=== PATIENT | male | born 1955 | race Caucasian/White ===

== ENCOUNTER 2024-10-30 08:46 | Emergency (ER) | payer MEDICARE, SELFPAY ==
--- NOTE | ~2024-10-30 | XR_ITS ---
XR abdomen/kub 1V Ordering provider: NENA Lambert History: . constipation . Comparison: None. FINDINGS: BOWEL: Nonobstructive bowel gas pattern. Fecal material is loaded in the colon. ORGANOMEGALY: None. SIGNIFICANT PATHOLOGIC CALCIFICATIONS: None. OTHER: No free air is seen under the diaphragm. Bilateral hip osteoarthritic changes. IMPRESSION: NO ACUTE ABDOMINAL FINDINGS. Constipation. Reviewed, dictated and finalized at location A.
--- OUTSIDE RECORDS SUMMARY | 2024-10-30 08:58 | XMS_ITS | Continuity of Care Document ---
Author Organization [facility]. 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 Role Phone Unavailable Unavailable Unavailable Unavailable Unavailable Unavailable Unavailable Unavailable Unavailable Unavailable Unavailable Unavailable Unavailable Unavailable Unavailable Unavailable Unavailable Unavailable Unavailable Unavailable Unavailable Unavailable Unavailable Unavailable Unavailable Unavailable Unavailable Unavailable Unavailable Unavailable Unavailable Unavailable Unavailable Unavailable Unavailable Unavailable Unavailable Unavailable Unavailable Unavailable Problems Near syncope Onset:12-Sep-2022 ANGEL Addison Gastritis Onset:12-Mar-2019 Miguel Platt APRN, Jr History of SARS-CoV-2 Comments:History of COVID-19 Patient encounter status Comments:Screening PSA (prostate specific antigen) Electrocardiogram abnormal Comments:Abnormal EKG Syncope Comments:Syncope, unspecifie d syncope type Starr's esophagus Comments:Starr's esophagus without dysplasia Gastroesophageal reflux disease Comments:Gastroesophageal reflux disease, esophagitis presence not specified Irregular heart beat Comments:Irregular cardiac rhythm Multiple premature ventricul ar complexes Comments:PVCs (premature ventricular contractions) Paroxysmal atrial fibrillati on Comments:PAF (paroxysmal atrial fibrillation) Essential hypertension Comments:Primary hypertensio n Mixed hyperlipidemia Comments:Mixed hyperlipidemi a Pure hypercholesterolemia Comments:Pure hypercholesterolemia Obesity Comments:Obesity without serious comorbidity, unspecified classification, unspecified obesity type Obesity caused by energy imbalance Comments:Other obesity due t o excess calories Viral meningitis Comments:Viral meningitis, unspecified Unspecified atrial fibrillation Gastro-esophageal reflux disease Other hyperlipidemia Essential (primary) hypertension Allergies and Adverse Reactions No Known Allergies(Allergy) Onset: 01-Jan-2024 No Known Allergies(Allergy) Medications Lidocaine Hydrochloride 20 M G/ML Mucous Membrane Topical Solution;2 % Mouth/Throat every 3 hrs, 15 mL as needed Quantity:600 MD [facility] Start:22-May-2024 Comments:2 % Mouth/Throat every 3 hrs, 15 mL as needed {21 (methylPREDNISolone 4 MG Oral Tablet) } Pack;4 MG Orally , as directed Quantity:1 MD Blair Adames Start:22-May-2024 Comments:4 MG Orally , as directed succinylcholine chloride 20 MG/ML Injectable Solution [Quelicin];Provider Administration Instructions:HIGH RISK MEDICATION Quantity:1 Mike Jimenez MD Start:03-Jan-2024 Status:Discontinued Comments:Provider Administration Instructions:HIGH RISK MEDICATION 5 ML lidocaine hydrochloride 20 MG/ML Injection [Xylocaine] Quantity:1 Mike Jimenez MD Start:03-Jan-2024 sodium chloride 9 MG/ML Injectable Solution Quantity:1 Mike Jimenez MD Start:03-Jan-2024 Status:Discontinued 1 ML glycopyrrolate 0.2 MG/M L Injection Quantity:1 Mike Jimenez MD Start:03-Jan-2024 Status:Discontinued 1 ML phenylephrine hydrochlo ride 10 MG/ML Injection;Provider Administration Instructions:HIGH RISK MEDICATION Avoid Extravasation: Vesicant Caution: This medication is a vesicant andshould be diluted and administered slowlythrough a running IV. Quantity:1 Mike Jimenez MD Start:03-Jan-2024 Status:Discontinued Comments:Provider Administration Instructions:HIGH RISK MEDICATION Avoid Extravasation: Vesicant Caution: This medication is a vesicant andshould be diluted and administered slowlythrough a running IV. EPHEDRINE SULFATE_EPHEIA5013 Quantity:1 Mike Jimenez MD Start:03-Jan-2024 Status:Discontinued 20 ML propofol 10 MG/ML Injection;Provider Administration Instructions:HIGH RISK MEDICATION Quantity:1 Mike Jimenez MD Start:03-Jan-2024 Status:Discontinued Comments:Provider Administration Instructions:HIGH RISK MEDICATION magnesium chloride 0.48730 MEQ/ML / potassium chloride 0.90620 MEQ/ML / sodium acetate 0.027 MEQ/ML / sodium chloride 0.0899 MEQ/ML / sodium gluconate 5.02 MG/ML Injectable Solution [Plasmalyte A];[id number] Mike Jimenez MD Start:50-Arp-5704Out:2023 Comments:[id number] acetaminophen 325 MG Oral Tablet;650 MILLIGRAM ONCALL Quantity:2 Mike Jimenez MD Start:39-Xhf-3689Sfk:2023 Comments:[id number] 1000 ML sodium chloride 4.5 MG/ML Injection;[id number] Mike Jimeenz MD Start:50-Drg-9086Wtq:2023 Comments:[id number] celecoxib 200 MG Oral Capsul e [CeleBREX];200 MILLIGRAM ONCALL Quantity:1 Mike Jimenez MD Start:64-Nuu-2909Qvp:2023 Comments:[id number] rosuvastatin calcium 40 MG O ral Tablet [Crestor];40 MILLIGRAM PO DAILY Start:01-Jan-2024 Comments:40 MG PO DAILY aspirin 81 MG Chewable Table t;81 MILLIGRAM PO DAILY Start:01-Jan-2024 Comments:81 MG PO DAILY amiodarone hydrochloride 100 MG Oral Tablet [Pacerone] Start:01-Jan-2024 Status:Discontinued {20 (nirmatrelvir 150 MG Ora l Tablet) / 10 (ritonavir 100 MG Oral Tablet) } Pack [Paxlovid 5-Day];Paxlovid Quantity:30 Start:21-Sep-2023 Comments:Paxlovid losartan potassium;losartan potassium Quantity:90 Start:03-Aug-2023 Comments:losartan potassium omeprazole;omeprazole Quantity:180 Start:03-Aug-2023 Comments:omeprazole rosuvastatin calcium;rosuvastatin calcium Quantity:90 Start:05-Jul-2023 Comments:rosuvastatin calcium aspirin;aspirin Quantity:90 Start:22-Nov-2022 Comments:aspirin acetaminophen 325 MG / HYDROcodone bitartrate 5 MG Oral Tablet;Provider Administration Instructions:DO NOT GIVE MORE THAN 3000MG TOTAL ACETAMINOPHENIN 24 HOUR PERIODOR MAX OF 9 TABLETS PER DAYIf an IV/IM and a PO pain medication are ordered forthe same pain level, the PO medication will beadministered preferentially if the patient is ableto take PO. Quantity:1 May Mercado MD Start:14-Jun-2020 Status:Discontinued Comments:Provider Administration Instructions:DO NOT GIVE MORE THAN 3000MG TOTAL ACETAMINOPHENIN 24 HOUR PERIODOR MAX OF 9 TABLETS PER DAYIf an IV/IM and a PO pain medication are ordered forthe same pain level, the PO medication will beadministered preferentially if the patient is ableto take PO. 100 ML propofol 10 MG/ML Injection;Provider Administration Instructions:Utilize Narcotic Tubing obtained from MedicationRoom during Administration. High Risk Medication Reassess patient for continued need for Paralytic orSedative therapy. Quantity:1 Truman Peralta MD Start:14-Jun-2020 Status:Discontinued Comments:Provider Administration Instructions:Utilize Narcotic Tubing obtained from MedicationRoom during Administration. High Risk Medication Reassess patient for continued need for Paralytic orSedative therapy. 100 ML propofol 10 MG/ML Injection;Provider Administration Instructions:Utilize Narcotic Tubing obtained from MedicationRoom during Administration. High Risk Medication Reassess patient for continued need for Paralytic orSedative therapy. Quantity:1 Truman Peralta MD Start:14-Jun-2020 Status:Discontinued Comments:Provider Administration Instructions:Utilize Narcotic Tubing obtained from MedicationRoom during Administration. High Risk Medication Reassess patient for continued need for Paralytic orSedative therapy. dexAMETHasone phosphate 4 MG /ML Injectable Solution;Provider Administration Instructions:5mL Multi-Dose vialDate and initial vial when opening Quantity:1 Truman Peralta MD Start:14-Jun-2020 Status:Discontinued Comments:Provider Administration Instructions:5mL Multi-Dose vialDate and initial vial when opening 1 ML glycopyrrolate 0.2 MG/M L Injection Quantity:1 Truman Peralta MD Start:14-Jun-2020 Status:Discontinued 2 ML ondansetron 2 MG/ML Injection;Provider Administration Instructions:Administer as a slow IV push over 2 minutesIf an IV/IM and a PO/SL/PerTube medication areordered for the same prn indication, the PO/SL/PerTube medication will be administered preferentiallyif the patient is able to tolerate a PO/SL/PerTubemedication. Quantity:1 Truman Peralta MD Start:14-Jun-2020 Status:Discontinued Comments:Provider Administration Instructions:Administer as a slow IV push over 2 minutesIf an IV/IM and a PO/SL/PerTube medication areordered for the same prn indication, the PO/SL/PerTube medication will be administered preferentiallyif the patient is able to tolerate a PO/SL/PerTubemedication. ketamine 10 MG/ML Injectable Solution;Provider Administration Instructions:Ketamine is to be administered by a licensedindependent practitioner only. NOT to be administeredIV PUSH by a NURSE.Direct IV Injection: Administer over 60 seconds Quantity:1 Truman Peralta MD Start:14-Jun-2020 Status:Discontinued Comments:Provider Administration Instructions:Ketamine is to be administered by a licensedindependent practitioner only. NOT to be administeredIV PUSH by a NURSE.Direct IV Injection: Administer over 60 seconds 50 ML propofol 10 MG/ML Injection;Provider Administration Instructions:Utilize Narcotic Tubing obtained from MedicationRoom during Administration. High Risk Medication Reassess patient for continued need for Paralytic orSedative therapy. Quantity:1 Truman Peralta MD Start:14-Jun-2020 Status:Discontinued Comments:Provider Administration Instructions:Utilize Narcotic Tubing obtained from MedicationRoom during Administration. High Risk Medication Reassess patient for continued need for Paralytic orSedative therapy. 50 ML propofol 10 MG/ML Injection;Provider Administration Instructions:Utilize Narcotic Tubing obtained from MedicationRoom during Administration. High Risk Medication Reassess patient for continued need for Paralytic orSedative therapy. Quantity:1 Truman Peralta MD Start:14-Jun-2020 Status:Discontinued Comments:Provider Administration Instructions:Utilize Narcotic Tubing obtained from MedicationRoom during Administration. High Risk Medication Reassess patient for continued need for Paralytic orSedative therapy. 2 ML fentaNYL 0.05 MG/ML Injection;Provider Administration Instructions:HIGH RISK MEDICATIONIf an IV/IM and a PO pain medication are ordered forthe same pain level, the PO medication will beadministered preferentially if the patient is ableto take PO. Quantity:1 Truman Peralta MD Start:14-Jun-2020 Status:Discontinued Comments:Provider Administration Instructions:HIGH RISK MEDICATIONIf an IV/IM and a PO pain medication are ordered forthe same pain level, the PO medication will beadministered preferentially if the patient is ableto take PO. 20 ML propofol 10 MG/ML Injection;Provider Administration Instructions:HIGH RISK MEDICATION Quantity:1 Truman Peralta MD Start:14-Jun-2020 Status:Discontinued Comments:Provider Administration Instructions:HIGH RISK MEDICATION neostigmine methylsulfate 1 MG/ML Injectable Solution Quantity:1 Truman Peralta MD Start:14-Jun-2020 Status:Discontinued 1 ML glycopyrrolate 0.2 MG/M L Injection Quantity:1 Truman Peralta MD Start:14-Jun-2020 Status:Discontinued rocuronium bromide 10 MG/ML Injectable Solution;Provider Administration Instructions:HIGH RISK MEDICATION Avoid Extravasation: Vesicant Quantity:1 Truman Peralta MD Start:14-Jun-2020 Status:Discontinued Comments:Provider Administration Instructions:HIGH RISK MEDICATION Avoid Extravasation: Vesicant 5 ML lidocaine hydrochloride 20 MG/ML Injection [Xylocaine];Provider Administration Instructions:5ml Single-Dose VialHIGH RISK MEDICATION Quantity:1 Truman Peralta MD Start:14-Jun-2020 Status:Discontinued Comments:Provider Administration Instructions:5ml Single-Dose VialHIGH RISK MEDICATION midazolam 1 MG/ML Injectable Solution;Provider Administration Instructions:HIGH RISK MEDICATION Quantity:1 Truman Peralta MD Start:14-Jun-2020 Status:Discontinued Comments:Provider Administration Instructions:HIGH RISK MEDICATION gabapentin 300 MG Oral Capsu le [Neurontin] Quantity:1 Truman Peralta MD Start:14-Jun-2020 Status:Discontinued EPINEPHrine 0.005 MG/ML / lidocaine hydrochloride 5 MG/ML Injectable Solution [Xylocaine with EPINEPHrine];Provider Administration Instructions:LIDOCAINE 0.5%/EPI 1:200270 50ML VIALHIGH RISK MEDICATION Quantity:1 Truman Peralta MD Start:14-Jun-2020 Status:Discontinued Comments:Provider Administration Instructions:LIDOCAINE 0.5%/EPI 1:026840 50ML VIALHIGH RISK MEDICATION 30 ML BUPivacaine hydrochlor kyrie 5 MG/ML Injection;Provider Administration Instructions:30 ml Single-dose Vial Quantity:1 Truman Peralta MD Start:14-Jun-2020 Status:Discontinued Comments:Provider Administration Instructions:30 ml Single-dose Vial ceFAZolin 1000 MG Injection Quantity:1 Truman Peralta MD Start:14-Jun-2020 Status:Discontinued acetaminophen 500 MG Oral Tablet;Provider Administration Instructions:CONTAINS 500MG ACETAMINOPHEN PER TABLETNOTIFY PHYSICIAN IF PT REQUIRES MORE THAN 6 TABS/24HRDO NOT EXCEED 3000MG/24 HRS TOTAL ACETAMINOPHEN.If an IV/IM and a PO pain medication are ordered forthe same pain level, the PO medication will beadministered preferentially if the patient is ableto take PO. Quantity:1 Truman Peralta MD Start:14-Jun-2020 Status:Discontinued Comments:Provider Administration Instructions:CONTAINS 500MG ACETAMINOPHEN PER TABLETNOTIFY PHYSICIAN IF PT REQUIRES MORE THAN 6 TABS/24HRDO NOT EXCEED 3000MG/24 HRS TOTAL ACETAMINOPHEN.If an IV/IM and a PO pain medication are ordered forthe same pain level, the PO medication will beadministered preferentially if the patient is ableto take PO. water 1000 MG/ML Injectable Solution Quantity:1 Truman Peralta MD Start:14-Jun-2020 Status:Discontinued MULTIVITAMIN;1 TABLET PO FARA LY Start:14-Jun-2020 Comments:1 TAB PO DAILY acetaminophen 325 MG / HYDROcodone bitartrate 5 MG Oral Tablet;1 TABLET PO Q4H PRN Start:14-Jun-2020 Status:Discontinued Comments:1 TAB PO Q4H PRN As Needed for Acute Pain (3 Day) Dicyclomine Hydrochloride 10 MG Oral Capsule;10 MG Orally Q8H for colon spasms, 1 cap(s) Quantity:30 MD Blair Adames Start:12-Mar-2019 Comments:10 MG Orally Q8H for colon spasms, 1 cap(s) losartan potassium 100 MG Or al Tablet;100 MILLIGRAM PO AC DIN Start:12-Mar-2019 Comments:100 MG PO AC DIN omeprazole 40 MG Delayed Rel ease Oral Capsule;40 MILLIGRAM PO AC DIN Start:12-Mar-2019 Comments:40 MG PO AC DIN simvastatin 40 MG Oral Table t;40 MILLIGRAM PO AC DIN Start:12-Mar-2019 Status:Discontinued Comments:40 MG PO AC DIN Mucinex MD Blair Adames Stool Softener MD Blair Adames Calcium MD Blair Adames Lidocaine MD Blair Adames Aspirin Low Dose;81 MG , KRISTI E 1 TABLET BY MOUTH EVERY DAY Quantity:90 MD Blair Adames Comments:81 MG , TAKE 1 TABL ET BY MOUTH EVERY DAY Aspirin 81;81 MG Orally Once a day, 1 tablet Quantity:90 MD Blair Adames Comments:81 MG Orally Once a day, 1 tablet CoQ-10;200 MG Orally , as directed MD Blair Adames Comments:200 MG Orally , as directed Losartan Potassium 100 MG Or al Tablet;100 MG , TAKE 1 TABLET BY MOUTH EVERY DAY Quantity:90 MD Blair Adames Comments:100 MG , TAKE 1 TAB LET BY MOUTH EVERY DAY Zocor;40 MG , TAKE 1 TABLET BY MOUTH EVERY EVENING MD Blair Adames Status:Inactive Comments:40 MG , TAKE 1 TABLET BY MOUTH EVERY EVENING Rosuvastatin Calcium;40 MG , TAKE 1 TABLET BY MOUTH EVERY DAY Quantity:90 MD Blair Adames Comments:40 MG , TAKE 1 TABL ET BY MOUTH EVERY DAY Omeprazole;40 MG , TAKE ONE CAPSULE BY MOUTH TWICE DAILY. STARTING 30 MINUTES BEFORE BREAKFAST Quantity:180 MD Blair Adames Comments:40 MG , TAKE ONE CAPSULE BY MOUTH TWICE DAILY. STARTING 30 MINUTES BEFORE BREAKFAST Procedures EGD BIOPSY SINGLE/MULTIPLE Date: 024 Immunizations zFLU 4V (AFLURIA QUAD), 3+yr s, WITH PRES - ALL PAYORS Lot #:[id number], [employer] zFLU 4V (FLUCELVAX QUAD), 2y rs+, NO PRES - ALL PAYORS Lot #:[id number], [employer] zCOVID-19 (Moderna Booster) 18+yrs, NO PRES Lot #:[id number], [employer] zCOVID-19 (Moderna Booster) 18+yrs, NO PRES Lot #:[id number], [employer] zFLU 4V (FLUAD QUAD), 65yrs+ , NO PRES - ALL PAYORS Lot #:[id number], [employer] zCOVID-19 (Pfizer-BioNTech P urple Cap Comirnaty) 12+yrs, NO PRES Lot #:[id number], [employer] zFLU 4V (FLUZONE HIGH DOSE Q UAD), 65yrs+, NO PRES - ALL PAYORS Lot #:[id number], San[employer]i Pasteur zCOVID-19 (Comirnaty ) 12+yrs, NO PRES Lot #:[id number], [employer] zFLU 4V (FLUAD QUAD), 65yrs+ , NO PRES - ALL PAYORS Lot #:[id number], [employer] FLU 3V (FLUZONE HIGH DOSE TR I), 65yrs+, NO PRES - ALL PAYORS Lot #:[id number], [employer]i Pasteur zCOVID-19 (Comirnaty ) 12+yrs, NO PRES Lot #:[id number], Pfizer, Inc Social History Smoking Status Never smoked tobacco Recorded: 12-Sep-2022 Never smoked tobacco Recorded: 12-Mar-2019 Never smoked tobacco Never smoked tobacco Results LIPID PANEL, STANDARD (Q-7600) Ordered On:04-Jan-2024 Comments:0; 0; 0; 0PERFORMIN G LAB: [facility] [employer]-[id number] Pee Doherty, [id number] Manny Hamilton MDX0A Cholesterol [Mass/Vol]149mg/dL(Normal ) Range:0-200mg/dL Cholesterol in HDL [Mass/Vol]43mg/dL(Normal) Range:> OR = 40 mg/dL Cholesterol non HDL [Mass/Vol]106mg/dL(Normal ) Range:0-130mg/dL Comments:For patients with diabetes plus 1 major ASCVD riskfactor, treating to a non-HDL-C goal of <100 mg/dL(LDL-C of <70 mg/dL) is considered a therapeuticoption. Triglyceride [Mass/Vol]156mg/dL(High) Range:0-150mg/dL Cholesterol.total/Ch olest param in HDL [Mass ratio]3.5{(calc)}(Normal) Range:0-5{(calc)} Cholesterol in LDL C alc [Mass/Vol]81mg/dL(Normal) Comments:Reference range: <100Desirable range <100 mg/dL for primary prevention;<70 mg/dL for patients with CHD or diabetic patientswith > or = 2 CHD risk factors.LDL-C is now calculated using the Jerecalculation, which is a validated novel method providingbetter accuracy than the Friedewald equation in theestimation of LDL-C.Ganesh BOJORQUEZ et al. LENIN. 2013;310(19): 1074-1466(http://education.[employer]/faq/VDF859) PSA, TOTAL (Q-5363) Ordered On:04-Jan-2024 Comme nts:0; 0; 0; 0PERFORMING LAB: [facility] [employer] [facility]-[id number] E Pernell Doherty, [id number] [employer] MDX0A Prostate specific Ag [Mass/Vol]0.99ng/mL(Mary l) Range:< OR = 4.00 ng/mL Comments:The total PSA value from this assay system isstandardized against the WHO standard. The testresult will be approximately 20% lower when comparedto the equimolar-standardized total PSA (BeckmanCoulter). Comparison of serial PSA results should beinterpreted with this fact in mind.This test was performed using the Siemenschemiluminescent method. Values obtained fromdifferent assay methods cannot be usedinterchangeably. PSA levels, regardless ofvalue, should not be interpreted as absoluteevidence of the presence or absence of disease. HEMOGLOBIN A1c (Q-496) Ordered On:04-Jan-2024 Co mments:0; 0; 0; 0PERFORMING LAB: [facility] [employer] [facility]-[id number] E Pernell Reyespee, [id number] Manny [employer] MDX0A HbA1c (Bld) [Mass fraction]5.9%{total}(High ) Range:0-5.7%{total} Comments:For someone without known diabetes, a uosrqxqzksX7f value between 5.7% and 6.4% is consistent withprediabetes and should be confirmed with afollow-up test.For someone with known diabetes, a value <7%indicates that their diabetes is well controlled. Y6cxwwohfz should be individualized based on duration ofdiabetes, age, comorbid conditions, and otherconsiderations.This assay result is consistent with an increased riskof diabetes.Currently, no consensus exists regarding use ofhemoglobin A1c for diagnosis of diabetes for children.This test was performed on the CloudBase[employer] naa c503 platform.Effective 02/19/23, a change in test platforms from theCloudCase to the Braydon naa c503 may have [id number] results compared to historical results.Based [facility], the [employer] platform relative to the Abbottplatform had an average increase in HbA1c value of< or = 0.3%. This difference is within acceptedvariability established by the National GlycohemoglobinStandardization Program. Note that not all individualswill have had a shift in their results and directcomparisons between historical and current results fortesting conducted on different platforms is notrecommended. Comprehensive Metabolic Panel([id number]) Ordered On:04-Jan-2024 Comments:0; 0; 0; 0PERFORMIN G LAB: TP, [facility]-[id number] E Pernell Doherty, [id number] Calhoun H Joy MDX0A AST [Catalytic activity/Vol]18U/L(Normal ) Range:10U/L-35U/L CO2 [Moles/Vol]27mmol/L(Mary l) Range:20mmol/L-32mmol/L Albumin/Globulin [Ma ss ratio]1.9{(calc)}(Normal) Range:1{(calc)}-2.5{(calc)} Sodium [Moles/Vol]140mmol/L(Norm al) Range:135mmol/L-146mmol/L Urea nitrogen [Mass/Vol]16mg/dL(Normal) Range:7mg/dL-25mg/dL Bilirubin [Mass/Vol]0.6mg/dL(Normal ) Range:0.2mg/dL-1.2mg/dL Albumin [Mass/Vol]4.4g/dL(Normal) Range:3.6g/dL-5.1g/dL ALP [Catalytic activity/Vol]57U/L(Normal ) Range:35U/L-144U/L Glucose [Mass/Vol]84mg/dL(Normal) Range:65mg/dL-99mg/dL Comments:Fasting reference interval Creatinine [Mass/Vol]1.03mg/dL(Mary l) Range:0.7mg/dL-1.35mg/dL ALT [Catalytic activity/Vol]20U/L(Normal ) Range:9U/L-46U/L Chloride [Moles/Vol]106mmol/L(Norm al) Range:98mmol/L-110mmol/L Calcium [Mass/Vol]9.1mg/dL(Normal ) Range:8.6mg/dL-10.3mg/dL Globulin Calc (S) [Mass/Vol]2.3g/dL(Normal) Range:1.9g/dL-3.7g/dL Protein [Mass/Vol]6.7g/dL(Normal) Range:6.1g/dL-8.1g/dL Potassium [Moles/Vol]4.1mmol/L(Norm al) Range:3.5mmol/L-5.3mmol/L GFR/1.73 sq M.predic dora Creatinine-based formula (CKD-EPI 2020) (S/P/Bld) [Vol rate/Area]79mL/min/{1.73_ m2}(Normal) Range:> OR = 60 mL/min/1.73m2 Urea nitrogen/Creati nine [Mass ratio]SEE NOTE:{(calc)} Range:6{(calc)}-22{(calc)} Comments:Not Reported: BUN and Creatinine are within reference range. Vital Signs 28-Aug-2024 10:15 BMI30.53{index_val} BP Xsthztlx365de[Hg] BP Sryrkvakq81aq[Hg] BP Zsszsgiq398dv[Hg] BP Hckvvfkao91fh[Hg] Pulse73/min Tzvqfz91nw Pkmwgb262.96cm Epmtxi289.8lb Rfdnrx023.86kg 22-May-2024 13:30 BMI30.12{index_val} BP Uvfblwng266qn[Hg] BP Qlhlvrzdb09ky[Hg] Kxauisenhns35m Pulse81/min Respiratory Rate18/min O2 SAT98 Reguwr14yg Whppsy156.96cm Hmdpup283.6lb Amzfws767.41kg 04-Mar-2024 09:30 BMI30.81{index_val} BP Ehcezcam887jz[Hg] BP Mqmnjmfsm65mc[Hg] Xnnltelwxib38q Pulse82/min Respiratory Rate18/min O2 SAT98 Ppliod80qh Khtimz041.96cm Oldzeo874rv Xjmhdo147.86kg 27-Feb-2024 10:15 BMI30.9{index_val} BP Jxklcxlx951br[Hg] BP Tdxgfzjcr97hf[Hg] Pulse80/min Jtweey01oj Sqjjwi565.96cm Hjvjjo124.7lb Qcjzwi333.18kg 03-Jan-2024 07:26 Height6.25[ft_us] Comments:6 Dtusol207.3kg Comments:111.300 01-Jan-2024 16:26 Height6.25[ft_us] Comments:6 Jkulaw290.636kg Comments:113.636 Encounters Ambulatory Encounter Diagnosis:Paroxysmal atrial fibrillation,Obesity,Essential hypertension,Syncope,Electrocardiogram abnormal,Pure hypercholesterolemia,Multiple premature ventricular complexes,Viral meningitis 28-Aug-2024 10:61Az20-Kvk-1632 10:15 [id number] Comments:Paroxysmal atrial fibrillation,Obesity without serious comorbidity, unspecified classification, unspecified obesity type,Primary hypertension,Syncope, unspecified syncope type,Abnormal EKG,Pure hypercholesterolemia,PV Cs (premature ventricular contractions),Viral meningitis, unspecified Ambulatory Encounter Diagnosis:I10,Encounter for screening for other disorder,Mixed hyperlipidemia,Gastro-esophageal reflux,Starr's esophagus,Irregular heart beat,Obesity caused by energy imbalance,Paroxysmal atrial fibrillation,Multiple premature ventricular complexes,Prediabetes,Patient encounter status,Does use hearing aid,Other residential (current) drug therapy 22-May-2024 13:85Dg5-Vtf-8278 13:30 KARI ALLEN (Attending) [id number] Comments:Primary hypertension,Encounter for screening for other disorder,Mixed hyperlipidemia,Gastroes ophageal reflux disease, esophagitis presence not specified,Starr's esophagus without dysplasia,Irregular cardiac rhythm,Other obesity due to excess calories,PAF (paroxysmal atrial fibrillation),PVCs (premature ventricular contractions),Prediabet es,Prostate cancer screening,Wears hearing aid,Medication management Ambulatory Encounter Diagnosis:I10,Gastro-esophageal reflux,Mixed hyperlipidemia,Starr's esophagus,Irregular heart beat,Obesity caused by energy imbalance,Paroxysmal atrial fibrillation,Multiple premature ventricular complexes,Prediabetes,Patient encounter status,Does use hearing aid,Other exterminator (current) drug therapy 04-Mar-2024 09:[id number] 09:30 JEFFREY RUTLEDGE (Attending) [id number] Comments:Primary hypertension,Gastroesop hageal reflux disease, esophagitis presence not specified,Mixed hyperlipidemia,Starr' s esophagus without dysplasia,Irregular cardiac rhythm,Other obesity due to excess calories,PAF (paroxysmal atrial fibrillation),PVCs (premature ventricular contractions),Prediabet es,Prostate cancer screening,Wears hearing aid,Medication management Ambulatory Encounter Diagnosis:Paroxysmal atrial fibrillation,Obesity,Essential hypertension,Syncope,Electrocardiogram abnormal,Pure hypercholesterolemia,Multiple premature ventricular complexes,Viral meningitis 27-Feb-2024 10:[id number] 10:15 [id number] Comments:Paroxysmal atrial fibrillation,Obesity without serious comorbidity, unspecified classification, unspecified obesity type,Primary hypertension,Syncope, unspecified syncope type,Abnormal EKG,Pure hypercholesterolemia,PV Cs (premature ventricular contractions),Viral meningitis, unspecified short stay Encounter Reason:TAO ESOPHAGUS Encounter Diagnosis:GASTRO-ESOPHAGEAL REFLUX DISEASE WITHOUT ESOPHAGITIS,POLYP OF STOMACH AND DUODENUM,DIAPHRAGMATIC HERNIA WITHOUT OBSTRUCTION OR GANGRENE,ESSENTIAL (PRIMARY) HYPERTENSION,HYPERLIPIDEMIA, UNSPECIFIED,OBESITY, UNSPECIFIED,FAMILY HISTORY OF MALIGNANT NEOPLASM OF DIGESTIVE ORGANS,HOST COORDINATOR (CURRENT) USE OF ASPIRIN,BODY MASS INDEX [BMI] 31.0-31.9, ADULT,STARR'S ESOPHAGUS WITHOUT DYSPLASIA 03-Jan-2024 06:[id number] 06:37 Norma Chapa MD (Attending) [facility] Discharge Disposition:Discharged to home or self care (routine discharge) Norma Chapa MD-03-Jan-2024 [place], [place] [address]Patient Name: JUDY BUCK : 55 RM#: Date: 01/03/24 AGE: 68Disch Date: SEX: MAttending Physician: Eduard Green MD OPERATIVE REPORT DATE OF PROCEDURE: 01/03/2024OPERATING PHYSICIAN: MELISSA PatelWEST CALCAS[facility]ITAL[facility] CARE PHYSICIAN: MELISSA TiptonROCEDURE:Esophagogastroduodenoscopy with biopsy.PREOPERATIVE DIAGNOSIS:The patient has chronic GERD and Starr's for surveillance.POSTOPERATIVE DIAGNOSES:1. Hiatal hernia.2. Fundic polyps, known previously.3. Evidence of Starr's at 37-35 cm, biopsied.DESCRIPTION OF PROCEDURE:After previously explaining the procedure to the patient, explaining the risksand benefits, including but not limited to bleeding, perforation, anyanesthetic risk, brought to endoscopy suite. He was given MAC-assistedanesthesia, tolerated well. Subsequently, Olympus HQ190 gastroscope wasintroduced into the hypopharynx. The esophageal body was intubated. Theesophageal body and then stomach and descending duodenum. Withdrawn J flexview revealed a hiatal hernia and fundic polyps. Those were not biopsiedtoday. There were known from previous examinations. Esophagus was seen. Areawas biopsied at 37-35 cm for Starr's and the endoscope was withdrawn.ASSESSMENT:Gastroesophageal reflux disease and Starr's.PLAN:Follow up office visit for ongoing surveillance pending biopsies. DEEDEE Patel/LianDD: 01/03/2024 08:08DT: 01/03/2024 08:29Job #: [id number] by Eduard Green MD On 01/03/2024 11:56:35 AMPATIENT NAME: JUDY BUCK #[id number] at 1156PATIENT NAME: JUDY BUCK Ambulatory 21-Sep-2023 VERNELL RENDON (Attending) [place] Plan of Treatment Future Tests Future scheduled test information is unavailable Pending Tests Pending diagnostic test information is unavailable Future Visits Future appointment information is unavailable Referrals to Other Providers Reason for Referral Referral Start Date Provider Provider Contact Information Provider Address Eduardo Mckenna MD Work Phone: [phone] [phone] Molly Love MD Work Phone: [phone] [phone] Future Procedures Future procedure information is unavailable Future Medications Future medication information is unavailable Patient Instructions Instruction Admit Date ED Fainting, Vagal Reaction September 12 5:41pm ED Fainting, Uncertain Cause September 12 023 5:41pm Goals Acute Goals Standards of Practice will b e met
--- OUTSIDE RECORDS SUMMARY | 2024-10-30 08:58 | XMS_ITS ---
Author Organization [facility] Silvia samayoa Billing Info Address [address] [place] [id number] Care Team Providers Care Claims Agent Right Of Way Name Role Phone KARI ALLEN Primary Care Provider MD KARI ALLEN Unavailable Unavailable KIMBER LOW [phone] REASON FOR VISIT 6mon Medications Medication SIG (Take, Route, Frequency, Duration) Notes Start Date End Date Status Stool Softener Activ e Aspirin Low Dose 81 MG TAKE 1 TABLET BY MOUTH EVERY DAY for 90 Not-Taking Dicyclomine HCl 10 MG 1 cap(s) Orally Q8 H for colon spasms for 10 day(s) 03/12/2019 Not-Taking Omeprazole 40 MG TAKE ONE CAPSULE BY MOUTH TWICE DAILY. STARTING 30 MINUTES BEFORE BREAKFAST for 90 Active Rosuvastatin Calcium 40 MG TAKE 1 TABLET BY MOUTH EVERY DAY for 90 days Active Lidocaine Active Lidocaine Viscous HCl 2 % 15 mL as neede d Mouth/Throat every 3 hrs for 5 days 05/22/2024 Active Losartan Potassium 100 MG TAKE 1 TABLET BY MOUTH EVERY DAY for 90 days Active MethylPREDNISolone 4 MG as directed Oral ly for 6 days 05/22/2024 Active Mucinex Active Aspirin 81 81 MG 1 tablet Orally Once a day for 90 days Active Calcium Active CoQ-10 200 MG as directed Orally Active Social History Tobacco Use: Social History Observation Description Date Details (start date - stop date) Never Smoker NA - NA Tobacco Status: Question Answer Notes Patient is a never smoker Vital Signs Height 74 in 08/28/2024 Weight 237.8 lbs 08/28/2024 BMI 30.53 kg/m2 08/28/2024 Blood pressure systolic 153 mm Hg 08/29/19 25 Blood pressure diastolic 99 mm Hg 025 Heart Rate 73 /min 08/28/2024 Encounters Encounter Location Date Provider Diagnosis [id number] [address] [place] [address] 08/28/2024 KIMBER LOW Obesity without serious comorbidity, unspecified classification, unspecified obesity type E66.9 ; Paroxysmal atrial fibrillation I48.0 ; Primary hypertension I10 ; Syncope, unspecified syncope type R55 ; Abnormal EKG R94.31 ; Pure hypercholesterolemia E78.00 ; PVCs (premature ventricular contractions) I49.3 and Viral meningitis, unspecified A87.9 Assessments Encounter Date Diagnosis (ICD Code) Assessment Notes Treatment Notes Treatment Clinical Notes Section Notes 08/28/2024 Obesity without seri ous comorbidity, unspecified classification, unspecified obesity type (ICD-10 - E66.9) 08/28/2024 Paroxysmal atrial fibrillation (ICD-10 - I48.0) 41 sec afib non-sustained > 10% PACs see report by EP Dr. Reyez no intervention needed works heavy retired construction 08/28/2024 Primary hypertension (ICD-10 - I10) better controlled with LOSARTAN 08/28/2024 Syncope, unspecified syncope type (ICD-10 - R55) seen [facility] report[facility] negative troponin low risk carotid duplex stable echo and ABNORMAL holter CAC < 100 asymptomatic on asa and statin seen [facility] Reyez 08/28/2024 Abnormal EKG (ICD-10 - R94.31) old inferior FL vs artifact frequent PVCs 08/28/2024 Pure hypercholesterolemia (ICD-10 - E78.00) on statin LDL 81 08/28/2024 PVCs (premature ventricular contractions) (ICD-10 - I49.3) see echo and holter stable 08/28/2024 Viral meningitis, unspecified (ICD-10 - A87.9) remote 08/28/2024 Other 1st degree AV block noted QRS 100msec repeat holter if symptomatic Plan Of Treatment Medication Medication Name Sig Start Date Stop Date Notes Aspirin 81 81 MG 1 tablet Orally Once a day for 90 days Treatment Notes Assessment Notes Paroxysmal atrial fibrillation 41 sec afib non-sustained > 10% PACs see report by EP Dr. Reyez no intervention needed works heavy retired construction Primary hypertension better controlled w ith LOSARTAN Syncope, unspecified syncope type seen [facility] negative troponin low risk carotid duplex stable echo and ABNORMAL holter CAC < 100 asymptomatic on asa and statin seen EP Dr. Reyez Abnormal EKG old inferior FL vs a rtifact frequent PVCs Pure hypercholesterolemia on statin LDL 81 PVCs (premature ventricular contractions ) see echo and holter stable Viral meningitis, unspecified remote Other 1st degree AV block noted QRS 100msec repeat holter if symptomatic Next Appt Details Follow Up: 6 Months, Reason: Progress Notes * Mendez MURGUIA KDOB:[birth year] (69 yo M)Acc No.[id number]:08/28/2024 PROGRESS NOTE Patient: Mendez HURD Provider: Frances LOW MD :1955 A ge:69 Y S ex:Male Date:08/28/2024 C #:[id number] Address:[address] [place] [address], [address], [facility] Pcp:KARI ALLEN Subjective: * Chief Complaints: * 6 mon * HPI: F irst Point of Contact Screening: Do any of the following apply to you? N ew rash or open sores N o F ever and/or chills in the past 7 days N o C ough N o M uscle or body aches (other than from an injury) N o S ore throat N o I n the past 3 weeks, have you or a close contact traveled outside the [facility] and you are now ill? N o P atient History: high BP with MD at home SBP 125-135 able to mow all lawns, does heavy duty asymptomatic. * ROS: C ARDIOLOGY: Constitutional: N egative for:, fatigue. C ardiovascular: N egative for:, chest pain, edema, lightheadedness, orthopnea, presyncope, palpitations, shortness of breath, syncope. R espiratory: N egative for:, dyspnea. M usculoskeletal: N egative for:, edema, leg cramps when walking, muscle aches at rest. N eurological: N egative for:, confusion, dizziness. H ematologic/Lymphatic: N egative for:, easy bruising, bleeding. * Medical History: * Surgical History: v asectomy 1982Ventral Hernia Repair 06/14/2020 * Hospitalization/Major Diagno stic Procedure: E r Visit- Gastritis 04/03 * Family History: M other: . F ather: . S ister(s): . B newer(s): alive.?1 son(s) , 1 daughter(s) - healthy. . * Social History: A lcohol Use Patient u ses alcohol Drinks per occasion: 1 Drinks per week: 4 T obacco Status Patient is a never smoker M arital Status: . L stevenson with: spouse. L iving Environment Reported as: H ouse/Condo/Apartment A mbulatory Status : i s independent C hildren: yes. O ccupation/Work: retired. * Medications: T akingAspirin 81 81 MG Tablet Delayed Release 1 tablet Orally Once a day Calcium CoQ-10 200 MG Capsule as directed Orally Lidocaine Lidocaine Viscous HCl 2 % Solution 15 mL as needed Mouth/Throat every 3 hrs Losartan Potassium 100 MG Tablet TAKE 1 TABLET BY MOUTH EVERY DAY MethylPREDNISolone 4 MG Tablet Therapy Pack as directed Orally Mucinex Omeprazole 40 MG Capsule Delayed Release TAKE ONE CAPSULE BY MOUTH TWICE DAILY. STARTING 30 MINUTES BEFORE BREAKFAST Rosuvastatin Calcium 40 MG Tablet TAKE 1 TABLET BY MOUTH EVERY DAY Stool Softener Taking Aspirin 81 81 MG Tablet Delayed Release 1 tablet Orally Once a day Taking Calcium Taking CoQ-10 200 MG Capsule as directed Orally Taking Lidocaine Taking Lidocaine Viscous HCl 2 % Solution 15 mL as needed Mouth/Throat every 3 hrs Taking Losartan Potassium 100 MG Tablet TAKE 1 TABLET BY MOUTH EVERY DAY Taking MethylPREDNISolone 4 MG Tablet Therapy Pack as directed Orally Taking Mucinex Taking Omeprazole 40 MG Capsule Delayed Release TAKE ONE CAPSULE BY MOUTH TWICE DAILY. STARTING 30 MINUTES BEFORE BREAKFAST Taking Rosuvastatin Calcium 40 MG Tablet TAKE 1 TABLET BY MOUTH EVERY DAY Taking Stool Softener Not-TakingAspirin Low Dose 81 MG Tablet Delayed Release TAKE 1 TABLET BY MOUTH EVERY DAY Dicyclomine HCl 10 MG Capsule 1 cap(s) Orally Q8H for colon spasms Medication List reviewed and reconciled with the patientNot-Taking Aspirin Low Dose 81 MG Tablet Delayed Release TAKE 1 TABLET BY MOUTH EVERY DAY Not-Taking Dicyclomine HCl 10 MG Capsule 1 cap(s) Orally Q8H for colon spasms Medication List reviewed and reconciled with the patient * Allergies: n o[Allergies Verified] Objective: * Vitals: H t: 74 in, Ht-cm: 187.96 cm, Wt: 237.8 lbs, Wt-k.86 kg, BMI:30.53, Weight Change: 3.2 lbs, Body Surface Area: 2.37, BP:153/99, Repeat BP:153/93, HR:73. * Examination: C ARDIOLOGY: Constitutional: no acute distress, oriented to person, place, and time. Neck: no bruits, No JVD. Respiratory: clear to auscultation bilaterally. Cardiovascular: n ormal cardiac auscultation, without murmur, regular rate and rhythm, Pulses, Radial, Femoral, , Dorsalis Pedius, 2+ (brisk, expected) normal, no edema . Chest: normal. Skin: supple, warm. Neurologic/Psychiatric: alert and oriented to person, to place, to time. Assessment: * Assessment: 1. P aroxysmal atrial fibrillation - I48.0 (Primary) 2 . O besity without serious comorbidity, unspecified classification, unspecified obesity type - E66.9 3 .?Primary hypertension - I10 4 . S yncope, unspecified syncope type - R55 5. A bnormal EKG - R94.31 6 . P ure hypercholesterolemia - E78.00 7 . P VCs (premature ventricular contractions) - I49.3 8 .?Viral meningitis, unspecified - A87.9 Plan: * Treatment: 2. P rimary hypertension Notes: better controlled with LOSARTAN 3. S yncope, unspecified syncope type Notes: seen [facility] report[facility] negative troponin low risk carotid duplex stable echo and ABNORMAL holter CAC < 100 asymptomatic on asa and statin seen EP Dr. Reyez 4. A bnormal EKG Notes: old inferior FL vs artifact frequent PVCs 5. P ure hypercholesterolemia Notes: on statin LDL 81 6. P VCs (premature ventricular contractions) Notes: see echo and holter stable 7. V iral meningitis, unspecified Notes: remote 8. O thers Notes: 1st degree AV block noted QRS 100msec repeat holter if symptomatic * Procedure Codes: * Preventive Medicine: [place] PAF (Patient Assessment Form): F all Risk Assessment Date Screening Completed: 0 08/28/2024 Increased Fall Risk factors: N o fall risk factors History Falls in Past Year: N o falls in the past year Quality Measures: H igh Blood Pressure screening and follow up: Intervention Order Y es Follow Up for BP reading with PCP/Alternative Provider F ollow-up 1 month (finding) Lifestyle Recommendation L ifestyle education (procedure) (and prescribeanti-hypertensive pharmacology therapy, labtest for hypertension / electrocardiogram) W eight Assessment Above Normal BMI Follow-Up L ifestyle education regarding diet * Follow Up: 6 Months * Care Plan Details* * Sign off status: Completed true * Provider: Frances LOW MD Date: 0 08/28/2024 Generated for Printi ng/Nathaniel/eTransmitting on: 0 10/30/2024 09:58 AM EDT History and Physical Notes * HPI (History of Present Illness) Category Sub-Category Detail Notes Category Not es Patient History high BP with MD at home SBP 125-135 able to mow all lawns, does heavy duty asymptomatic First Point of Contact Screening Do any of the following apply to you? New rash or open sores: No Fever and/or chills in the past 7 days: No Cough: No Muscle or body aches (other than from an injury): No Sore throat: No In the past 3 weeks, have yo u or a close contact traveled outside the [place] and you are now ill? : No Examination Category Sub-Category Detail Notes Category Not es CARDIOLOGY Constitutional: no acute distres s, oriented to person, place, and time Neck: no bruits, No JVD Respiratory: clear to auscultatio n bilaterally Cardiovascular: normal cardiac auscu ltation, without murmur, regular rate and rhythm, Pulses, Radial, Femoral, , Dorsalis Pedius, 2+ (brisk, expected) normal, no edema Chest: normal Skin: supple, warm Neurologic/Psychiatric: alert and orient ed to person, to place, to time
--- OUTSIDE RECORDS SUMMARY | 2024-10-30 08:59 | XMS_ITS | Clinical Summary ---
Author Organization [facility] Care Team Providers Care Electric [employer] Winder Name Role Phone Unavailable Primary Care Provider Unavailabl e Allergies No known active allergies Medications Acetaminophen (TYLENOL PO) Take by mouth. Active Social History Tobacco Use Types Packs/Day Years Used Date Smoking Tobacco: Never Assessed Sex and Gender Information Value Date Recorded Sex Assigned at Not on file Legal Sex Male 8:45 PM CDT Gender Identity Not on file Sexual Orientation Not on file Plan of Treatment Not on file
--- OUTSIDE RECORDS SUMMARY | 2024-10-30 08:59 | XMS_ITS | Clinical Summary ---
Author Organization [facility] Address [address] [place] [address] Care Team Providers Care Tail Sawyer Name Role Phone Tyrone Flynn MD Primary Care Provider [phone] Allergies No known active allergies Medications psyllium (METAMUCIL) powder Take 1 packet by mouth daily as needed. Active ibuprofen (ADVIL,MOTRIN) 200 mg tab/cap Take 2 tablet/capsu le by mouth 3 (three) times a day as needed 9 Active simvastatin (ZOCOR) 40 mg tabletIndications:M ultiple-type hyperlipidemia Take 1 tablet (40 mg total) by mouth nightly 90 tablet 3 9 Active omeprazole (PriLOSEC) 40 mg capsuleIndications: Starr's esophagus with dysplasia Take 1 capsule (40 mg total) by mouth daily 90 capsule 3 9 Active losartan (COZAAR) 50 mg tabletIndications:E ssential hypertension Take 1 tablet (50 mg total) by mouth daily 90 tablet 3 9 Active sucralfate (CARAFATE) 1 gram tablet 0 9 Active Active Problems Problem Noted Date Diagnosed Date Other constipation 03/12/2019 Overview (03/24/2019): Went to [facility] in [place], [place] for abdominal pain, work up consistent with constipation, improved with Citrate of Magnesia. Still passing small stools, thin caliber. No fever or blood. Assessment & Plan (04/01/2019 2:00 PM [employer]): He was in [place] recently and established care with an bias cutter or family practice doctor there who got some x-rays of his abdomen because of some vague epigastric complaints. He then was referred to the emergency room for possible acute pathology. CT of the abdomen and pelvis showed a mild thickening of the stomach wall suggestive of gastritis. He also had increased stool in the right side of his abdomen. He does note a change in his bowel habits including more difficulty having a bowel movement and a smaller caliber of stool. He did have a good result with magnesium citrate, but symptoms are not completely resolved. Exam today is benign. We discussed the importance of a high-fiber diet as well as adequate fluid intake. He had a normal colonoscopy about six months ago, so I don't think this needs to be repeated unless he does not get back to his baseline. A small bowel series may also be needed. He will establish care with a GI doctor in [place] when he returns there in about a week. If he has recurrence symptoms before then, call here for early follow-up or see his local GI doctor, Rogelio Bains MD. Essential hypertension 09/13/2018 Assessment & Plan (03/24/2019 11:13 AM [employer]GE[employer]): Blood pressure is in a good range at this time. Continue current therapy. He has a new primary care physician in [place] and will follow-up with him for future care. We did give him six months of refills on his medication to get him to his next appointment. Assessment & Plan (09/13/2018 9:58 AM CDT): We have been watching a borderline blood pressure situation for awhile. He also checks blood pressures at home, and he has been getting mildly elevated systolic blood pressures on a regular basis, similar to today's reading in the office. We will start him on losartan, and hopefully see a reduction over the next week or two. Follow-up in six months or sooner as needed. Lateral epicondylitis of right elbow 08/13/2018 Assessment & Plan (09/22/2018 3:50 PM CDT): He built a fishing pier back at his place in [place], and used a manual screwdriver. He has developed some tenderness over the lateral epicondyle of the right elbow. It should respond to rest and nonsteroidals. If not better in a couple weeks, return for early re-evaluation. Cough 01/03/2018 Assessment & Plan (02/24/2018 1:26 PM [employer]): He has had a cough since end of December. Started with a cold. Got over the cold but still has an intermittent cough, non productive. No fever. No hemoptysis. Exam is unremarkable. We are got a chest x-ray and had the patient return to the office to discuss results. I don't see any definite infiltrates or other worrisome mindings. The official report is pending. Differential includes allergies (no history of same), silent reflux (symptomatic reflux is well controlled with Prilosec), cough equivalent asthma, others. Assessment & Plan (01/24/2018 10:00 AM CDT): Had a URI about 3 weeks ago, got over with OTC meds. Never had a fever. Still coughing, non-productive. Seems to be improving slowly, but wanted it checked out before he leaves for [place] in about 3 weeks. Exam is unremarkable. After further discussion, he will continue his [id number] medication, and return before leaving for [place] if the cough has not resolved. He did not want to get a chest x-ray today. This is a reasonable approach. PVC's (premature ventricular contractions) 08/29 Overview (01/24/2018): See Aaron. Assessment & Plan (01/24/2018 10:02 AM CDT): See discussion elsewhere. These appear to be benign PVCs that do not need treatment. Low back pain 07/09/2014 Overview (07/21/2016): Low back pain Rotator cuff syndrome 02/08/2014 Overview (07/21/2016): Torn rotator cuff Starr's esophagus 09/14/2012 Overview (07/21/2016): Starr's esophagus Assessment & Plan (04/01/2019 1:58 PM [employer]): He has been seeing Dr. Bains for this condition. His last upper endoscopy was about six months ago. He will continue on Protonix. He is moving permanently to [place], so he will need to follow-up with a laborer laboratory down there as well. We are giving him refills of omeprazole that should last him several months.. Assessment & Plan (09/22/2018 3:49 PM CDT): He has a history of GE reflux and Starr's esophagus. He gets periodic EGDs and he thinks one is due so we will check with Dr. Bains about the scheduling. Continue omeprazole. Refill sent in. Assessment & Plan (08/29/2017 1:13 PM CDT): He is on omeprazole. He can tell if he has missed a dose, so we will continue current therapy. Lower endoscopy is due next year, so he will probably get a follow-up upper endoscopy at that time if indicated. Keep followups with GI. Gastroesophageal reflux disease 04/16/2003 Overview (07/21/2016): GERD Multiple-type hyperlipidemia 04/16/2003 Overview (07/21/2016): Mixed hyperlipidemia Assessment & Plan (03/24/2019 11:14 AM [employer]): He is tolerating simvastatin. Continue same and follow-up with his new doctor in [place]. Assessment & Plan (09/13/2018 10:00 AM CDT): He had a cholesterol panel recently which shows sustained response to generic Zocor. He is tolerating the medicine well. Continue same. Assessment & Plan (08/29/2017 1:14 PM CDT): Cholesterol is in a good range on current therapy. Very good numbers. Continue same and follow-up in six months. Non morbid obesity 04/16/2003 Overview (07/21/2016): Obesity Assessment & Plan (03/24/2019 11:14 AM [employer]): He has lost a few lb, and is out of the obese category, but just barely. He continues to work on his diet. Assessment & Plan (09/22/2018 3:51 PM CDT): He actually has lost some weight and is just under the obese category now. He says it was all the activity in [place] building a fishing pier for his residence. He will try to eat right and keep it under control. Assessment & Plan (08/29/2017 1:15 PM CDT): He is borderline obese. He should work on losing a few lb, although he does feel good at this weight. At 190 lb, he would be in a normal range. Osteoarthritis 04/16/1973 Overview (07/21/2016): Osteoarthritis Resolved Problems Problem Noted Date Diagnosed Date Resolved Date Screen for colon cancer 09/19/201803/16 Overview (04/01/2019): Added automatically from request for surgery [id number], see colonoscopy report Starr's esophagus with dysplasia 09/19/2018 03/23/2019 Overview (03/23/2019): Added automatically from request for surgery [id number], EGD with Dr. Bains. Prostate cancer screening 08/17/2017 Overview (04/01/2019): PSA in a low normal range from 2016 to 2018. Elevated blood pressure reading 08/04/2015 09/13/2018 Overview (09/13/2018): Elevated blood pressure, transitioned to hypertension. Assessment & Plan (02/05/2018 6:43 AM CDT): Blood pressure is borderline to mildly elevated, but I think this is a false reading due to frequent PVCs which result in a longer period of diastolic filling subsequent to the PVC and an elevated pulse pressure. We documented a normal Holter except for PVCs last year. He checks blood pressure frequently at home and typically gets below 140 over about 80 mm Hg. He showed me a slip of paper from [facility] where is blood pressure was 138/76. We will continue to monitor without intervention for now. Assessment & Plan (08/29/2017 1:14 PM CDT): Blood pressure is normal although the diastolic is borderline. He should continue to eat right, try to lose a little weight, and we will check him again in about six months. Immunizations Immunization Administration Dates Next Due Influenza, Quadrivalent, Spl it, Preservative Free, Intramuscular 01/27/2019,02/13/2018,01/17/2016 Influenza, Trivalent, IM (MDV) 02/05/2015 Influenza, Unspecified 12/15/2016 TD Preservative Free 09/15/2013 Surgical History Surgery Date Site/Laterality Comments VASECTOMY 04/16/1982 - 04/15/1983 Dr. Hicks. COLONOSCOPY 05/21/2007 Normal, Dr. Rae, [facility]. UPPER GASTROINTESTINAL ENDOSCOPY 11/22/2015 Starr's esophagus surveillance. ESOPHAGOGASTRODUODENOSCOPY 10/08/2018 Long segment of Starr's, negative for dysplasia, Dr. Bains, [facility]. COLONOSCOPY 10/08/2018 Normal, Dr. Bains, [facility]. Medical History Medical History Date Comments Gastroesophageal reflux disease GERD Hyperlipidemia Hyperlipidemia Elevated blood pressure reading 08/04/2015 Elevated blood pressure, transitioned to hypertension. Colon polyp Starr esophagus Hypertension Abdominal pain 03/12/2019 ER evaluation in [place], work up negative. Starr's esophagus with dysplasia 09/19/2018 Added automatically from request for surgery [id number], EGD with Dr. Bains. Chicken pox 1966 Screen for colon cancer 09/19/2018 Added au tomatically from request for surgery [id number], see colonoscopy report Prostate cancer screening 08/17/2017 PSA in a low normal range from 2017 to 2018. Family History Medical History Relation Name Comments Alcohol abuse Brother 2 Alcoholism; Esophageal cancer Brother 3 Cancer -es ophageal; Cause of : Cancer -esophageal Alcohol abuse Father Alcoholism; Pancreatic cancer Father Cancer, pa ncreas; Cause of : Cancer, pancreas Brain cancer Father's Brother 3 Cancer -b rain tumor; Cause of : Cancer -brain tumor Alcohol abuse Father's Brother 4 Alcoholi sm; Cause of : Alcoholism Hypertension Mother Hypertension; Relation Name Status Comments Brother 1 (Age 62) Brother 2 Brother 3 Father (Age 62) Father's Brother 1 (Age 58) Father's Brother 2 (Age 54) Father's Brother 3 Father's Brother 4 Mother Social History Tobacco Use Types Packs/Day Years Used Date Smoking Tobacco: Never Smokeless Tobacco: Never PHQ-2 Answer Date Recorded PHQ-2 Score 0 03/24/2019 Sex and Gender Information Value Date Recorded Sex Assigned at Not on file Legal Sex Male 11:43 AM [employer] Gender Identity Not on file Sexual Orientation Not on file Obstetrics History Last Filed Vital Signs Vital Sign Reading Time Taken Comments Blood Pressure 136/82 03/24/2019 10:24 AM [employer] Pulse 75 03/24/2019 10:24 AM [employer] Temperature 36.1 C (97 F) 03/24/2019 10:24 AM [employer] Respiratory Rate 12 03/24/2019 10:24 AM [employer] Oxygen Saturation 98% 03/24/2019 10:24 AM [employer] Inhaled Oxygen Concentration - - Weight 100.2 kg (221 lb) 03/24/2019 10:24 AM [employer] Height 185.4 cm (6' 1) 09/13/2018 9:19 AM CDT Body Mass Index 29.16 09/13/2018 9:19 AM CDT Plan of Treatment Not on file Insurance [employer] OPEN ACCESS [employer] OPEN ACCESS [employer] OPEN ACCESS Advance Directives For more information, please contact: [phone] * Full Code (Latest Code Status on File) Date Activated Date Inactivated Comments 10/08/2018 7:42 AM 10/08/2018 2:13 PM * Full Code Date Activated Date Inactivated Comments 10/08/2018 7:42 AM 10/08/2018 7:42 AM Care Teams Tail Sawyer Relationship Specialty Start Date End Date Tyrone Flynn MD [address] [place] [address] PCP - General 07/21/16
--- OUTSIDE RECORDS SUMMARY | 2024-10-30 08:59 | XMS_ITS | Patient Health Record ---
Author Organization [facility] samayoa Billing Info Address [address] [place] [id number] Care Team Providers Care Mangle Catcher Name Role Phone KARI ALLEN Primary Care Provider MD KARI ALLEN Unavailable Unavailable RENAE MAY Unavailable [phone] KIMBER ADAMES Unavailable [phone] JEFFREY RUTLEDGE Unavailable [phone] BEATRICE BOYKIN Unavailable Allergies No Known Allergies Reason For Referral No Information Medications Medication SIG (Take, Route, Frequency, Duration) Notes Start Date End Date Status Lidocaine Active Lidocaine Viscous HCl 2 % 15 mL as neede d Mouth/Throat every 3 hrs for 5 days 05/22/2024 Active MethylPREDNISolone 4 MG as directed Oral ly for 6 days 05/22/2024 Active Stool Softener Activ e Calcium Active Aspirin Low Dose 81 MG TAKE 1 TABLET BY MOUTH EVERY DAY for 90 Not-Taking CoQ-10 200 MG as directed Orally Active Dicyclomine HCl 10 MG 1 cap(s) Orally Q8 H for colon spasms for 10 day(s) 03/12/2019 Not-Taking Mucinex Active Omeprazole 40 MG TAKE ONE CAPSULE BY MOUTH TWICE DAILY. STARTING 30 MINUTES BEFORE BREAKFAST for 90 Active Losartan Potassium 100 MG TAKE 1 TABLET BY MOUTH EVERY DAY for 90 days Active Rosuvastatin Calcium 40 MG TAKE 1 TABLET BY MOUTH EVERY DAY for 90 days Active Aspirin 81 81 MG 1 tablet Orally Once a day for 90 days Active Immunizations Vaccine Route Administration Date Status Comme nts zFLU 4V (AFLURIA QUAD), 3+yr s, WITH PRES - ALL PAYORS Unknown 01/27/2019 Administered zFLU 4V (FLUZONE QUAD), 6MO+ (0.5 ML), NO PRES - SELF PAY Unknown 01/28/2020 Administered zFLU 4V (FLUZONE HIGH DOSE Q UAD), 65yrs+, NO PRES - ALL PAYORS Unknown 12/30/2021 Administered zFLU 4V (FLUAD QUAD), 65yrs+ , NO PRES - ALL PAYORS Unknown 01/16/2021 Administered zFLU 4V (FLUAD QUAD), 65yrs+ , NO PRES - ALL PAYORS Unknown 01/22/2023 Administered zCOVID-19 (Pfizer-BioNTech P urple Cap Comirnaty) 12+yrs, NO PRES Unknown 04/20/2021 Administered zFLU 4V (FLUCELVAX QUAD), 2y rs+, NO PRES - ALL PAYORS Unknown 01/20/2020 Administered zCOVID-19 (Moderna Booster) 18+yrs, NO PRES Unknown 06/24/2020 Administered zCOVID-19 (Moderna Booster) 18+yrs, NO PRES Unknown 07/22/2020 Administered zCOVID-19 (Comirnaty 2022- ) 12+yrs, NO PRES Unknown 01/22/2023 Administered zCOVID-19 (Comirnaty 2022-24 ) 12+yrs, NO PRES Unknown 01/18/2024 Administered FLU 3V (FLUZONE HIGH DOSE TR I), 65yrs+, NO PRES - ALL PAYORS Unknown 01/18/2024 Administered Social History Tobacco Use: Social History Observation Description Date Details (start date - stop date) Never Smoker NA - NA Tobacco Status: Question Answer Notes Patient is a never smoker Problems Problem Type SNOMED Code ICD Code Onset Dates Problem Status W/U Status Risk Notes Problem [id number] Viral meningitis, unspecified (A87.9) Active confirmed Problem 193549972 Other obesity due to excess calories (E66.09) Active confirmed patient with BMI 31.4. Report excessive eating. Patient is trying to keep active and exercise more often. Educated the patient on proper healthy eating habits and recommended Mediterranean diet, low on carbohydrates, sugar high on fibers whole grains, fruits. Advised patient to exercise at least 150 minute of moderate intensity exercise per AHA guidelines Problem 997077724 Mixed hyperlipidemia (E78.2) Active confirmed Reviewed labs with patient. Total cholesterol, triglyceride and LDL at goal. patient is compliant with current regimen and denies any side effects from medication. patient to continue current regimen; rosuvastatin 40 mg daily. ordered repeat labs and will follow up in 6 months. refilled rosuvastatin. Problem 279166492 Starr's esophagus without dysplasia (K22.70) Active confirmed as above-- EGD due 04/2023-- sees Dr. Green- doing well on meds/ anti- reflux precautions- no red flag signs. Pt plans to follow up with GI in near future for a repeat EGD Problem 676935257 Abnormal EKG (R94.31) Active confirmed Problem 407411125 Screening PSA (prostate specific antigen) (Z12.5) Active confirmed done per patient request and normal. Problem 665838133 PVCs (premature ventricular contractions) (I49.3) Active confirmed isolated, benign- management per Cardiology Problem 266072967 PAF (paroxysmal atrial fibrillation) (I48.0) Active confirmed e/m per Dr. Adames- on ASA. next appointment in 1 year Problem 796748144 Irregular cardiac rhythm (I49.9) Active confirmed patient totally asymptomatic- NEVER any chest pain, sob, palpitations or feelings of skipped heart beat- Prior EKG showed NSR with isolated PVCs. Follows up with doctors Zacarias. next appointment is in 1 year Problem 80918708 Primary hypertension (I10) Active confirmed Pt reports monitoring BP at home with SBP ranging around 130. controlled on current current medication. complaint with medication and denies adverse effects such SOB, CP, palpitation, or others. On todays clinica visit, pt BP is elevated at 144 SBP. Pt states that he has white coat syndrome. will continue to monitor Home and Clinic BP and adjust meds as needed. medications refilled Problem 916253798 Gastroesophageal reflux disease, esophagitis presence not specified (K21.9) Active confirmed per GI: meds and anti reflux precautions- RX renewed-- due for EGD- August 2023- Dr. Green. no red flag symptoms. Problem 360922882 Syncope, unspecified syncope type (R55) Active confirmed Problem 388948912 Pure hypercholesterol emia (E78.00) Active confirmed Problem 987029228 Obesity without serious comorbidity, unspecified classification, unspecified obesity type (E66.9) Active confirmed Problem [id number] History of COVID-19 (Z86.16) Active confirmed 11/2021- uncomplicated and no residual Vital Signs Heart Rate 73 /min 08/28/2024 Temperature 98.0 degrees Fahrenheit 05/22/2024 Respiratory Rate 18 /min 05/22/2024 Oximetry 98 05/22/2024 Blood pressure diastolic 99 mm Hg 08/28/2024 Height 74 in 08/28/2024 Blood pressure systolic 153 mm Hg 08/28/2024 Weight 237.8 lbs 08/28/2024 BMI 30.53 kg/m2 08/28/2024 Encounters Encounter Location Date Provider Diagnosis [id number] [address] [place], [place] [id number] 02/12/2024 RENAEDO MAY Primary hypertension I10 and Gastroesophageal reflux disease, esophagitis presence not specified K21.9 [id number] [address] [place], [place] [id number] 07/07/2024 KARI ALLEN Mixed hyperlipidemia E78.2 [id number] [address] [place], [place] [id number] 08/19/2024 KARI ALLEN Primary hypertension I10 [id number] [address] [place] [address] 02/27/2024 EPISCOPAL ZACARIAS Obesity without serious comorbidity, unspecified classification, unspecified obesity type E66.9 ; Paroxysmal atrial fibrillation I48.0 ; Primary hypertension I10 ; Syncope, unspecified syncope type R55 ; Abnormal EKG R94.31 ; Pure hypercholesterolemia E78.00 ; PVCs (premature ventricular contractions) I49.3 and Viral meningitis, unspecified A87.9 [id number] [address] [place], [place] [id number] 05/22/2024 KARI ALLEN Encounter for screen ing for other disorder Z13.89 ; Mixed hyperlipidemia E78.2 ; Primary hypertension I10 ; Gastroesophageal reflux disease, esophagitis presence not specified K21.9 ; Starr's esophagus without dysplasia K22.70 ; Irregular cardiac rhythm I49.9 ; Other obesity due to excess calories E66.09 ; PAF (paroxysmal atrial fibrillation) I48.0 ; PVCs (premature ventricular contractions) I49.3 ; Prediabetes R73.03 ; Prostate cancer screening Z12.5 ; Wears hearing aid Z97.4 and Medication management Z79.899 [id number] [address] [place] [address] 08/28/2024 KIMBER ADAMES Obesity without serious comorbidity, unspecified classification, unspecified obesity type E66.9 ; Paroxysmal atrial fibrillation I48.0 ; Primary hypertension I10 ; Syncope, unspecified syncope type R55 ; Abnormal EKG R94.31 ; Pure hypercholesterolemia E78.00 ; PVCs (premature ventricular contractions) I49.3 and Viral meningitis, unspecified A87.9 [id number] [address] [place], [place] [id number] 03/04/2024 JEFFREY RUTLEDGE Primary hypertension I10 ; Gastroesophageal reflux disease, esophagitis presence not specified K21.9 ; Mixed hyperlipidemia E78.2 ; Starr's esophagus without dysplasia K22.70 ; Irregular cardiac rhythm I49.9 ; Other obesity due to excess calories E66.09 ; PAF (paroxysmal atrial fibrillation) I48.0 ; PVCs (premature ventricular contractions) I49.3 ; Prediabetes R73.03 ; Prostate cancer screening Z12.5 ; Wears hearing aid Z97.4 and Medication management Z79.899 Assessments Encounter Date Diagnosis (ICD Code) Assessment Notes Treatment Notes Treatment Clinical Notes Section Notes 02/27/2024 Obesity without serious comorbidity, unspecified classification, unspecified obesity type (ICD-10 - E66.9) 03/04/2024 Primary hypertension (ICD-10 - I10) Visit summary: Labs pending 03/04/2024 Gastroesophageal reflux disease, esophagitis presence not specified (ICD-10 - K21.9) Visit summary: Labs pending 05/22/2024 Encounter for screening for other disorder (ICD-10 - Z13.89) Visit summary: Labs pending -laryngitis , Medrol Dosepak -burn roof of mouth refill lidocaine -pt spoke about his who just had a pacemaker placed, sees [place] Dr Mcmillan but she wants to move here 08/28/2024 Obesity without serious comorbidity, unspecified classification, unspecified obesity type (ICD-10 - E66.9) 02/12/2024 Primary hypertension (ICD-10 - I10) 07/07/2024 Mixed hyperlipidemia (ICD-10 - E78.2) 08/19/2024 Primary hypertension (ICD-10 - I10) 02/12/2024 Gastroesophageal reflux disease, esophagitis presence not specified (ICD-10 - K21.9) 08/28/2024 Paroxysmal atrial fibrillation (ICD-10 - I48.0) 41 sec afib non-sustained > 10% PACs see report by EP Dr. Reyez no intervention needed works heavy retired [employer] 05/22/2024 Mixed hyperlipidemia (ICD-10 - E78.2) Visit summary: Labs pending -laryngitis , Medrol Dosepak -burn roof of mouth refill lidocaine -pt spoke about his who just had a pacemaker placed, sees [place] Dr Mcmillan but she wants to move here 03/04/2024 Mixed hyperlipidemia (ICD-10 - E78.2) Reviewed labs with patient. Total cholesterol, triglyceride and LDL at goal. patient is compliant with current regimen and denies any side effects from medication. patient to continue current regimen; rosuvastatin 40 mg daily. ordered repeat labs and will follow up in 6 months. refilled rosuvastatin. Visit summary: Labs pending 02/27/2024 Paroxysmal atrial fibrillation (ICD-10 - I48.0) 41 sec afib non-sustained > 10% PACs see report by EP Dr. Reyez no intervention needed works heavy retired construction 02/27/2024 Primary hypertension (ICD-10 - I10) better controlled with LOSARTAN 03/04/2024 Starr's esophagus without dysplasia (ICD-10 - K22.70) as above-- EGD due 04/2023-- sees Dr. Green- doing well on meds/ anti- reflux precautions- no red flag signs. Pt plans to follow up with GI in near future for a repeat EGD Visit summary: Labs pending 05/22/2024 Primary hypertension (ICD-10 - I10) Visit summary: Labs pending -laryngitis , Medrol Dosepak -burn roof of mouth refill lidocaine -pt spoke about his who just had a pacemaker placed, sees [place] Dr Mcmillan but she wants to move here 08/28/2024 Primary hypertension (ICD-10 - I10) better controlled with LOSARTAN 08/28/2024 Syncope, unspecified syncope type (ICD-10 - R55) seen [place] negative troponin low risk carotid duplex stable echo and ABNORMAL holter CAC < 100 asymptomatic on asa and statin seen EP Dr. Reyez 05/22/2024 Gastroesophageal reflux disease, esophagitis presence not specified (ICD-10 - K21.9) Visit summary: Labs pending -laryngitis , Medrol Dosepak -burn roof of mouth refill lidocaine -pt spoke about his who just had a pacemaker placed, sees [place] Dr Mcmillan but she wants to move here 03/04/2024 Irregular cardiac rhythm (ICD-10 - I49.9) patient totally asymptomatic- NEVER any chest pain, sob, palpitations or feelings of skipped heart beat- Prior EKG showed NSR with isolated PVCs. Follows up with doctors Zacarias. next appointment is in 1 year Visit summary: Labs pending 02/27/2024 Syncope, unspecified syncope type (ICD-10 - R55) seen [place] negative troponin low risk carotid duplex stable echo and ABNORMAL holter CAC < 100 asymptomatic on asa and statin seen EP Dr. Reyez 02/27/2024 Abnormal EKG (ICD-10 - R94.31) old inferior ID vs artifact frequent PVCs 03/04/2024 Other obesity due to excess calories (ICD-10 - E66.09) patient with BMI 31.4. Report excessive eating. Patient is trying to keep active and exercise more often. Educated the patient on proper healthy eating habits and recommended Mediterranean diet, low on carbohydrates, sugar high on fibers whole grains, fruits. Advised patient to exercise at least 150 minute of moderate intensity exercise per AHA guidelines Visit summary: Labs pending 05/22/2024 Starr's esophagus without dysplasia (ICD-10 - K22.70) as above-- EGD due 04/2023-- sees Dr. Green- doing well on meds/ anti- reflux precautions- no red flag signs. Pt plans to follow up with GI in near future for a repeat EGD Visit summary: Labs pending -laryngitis , Medrol Dosepak -burn roof of mouth refill lidocaine -pt spoke about his who just had a pacemaker placed, sees [place] [facility] Mcmillan but she wants to move here 08/28/2024 Abnormal EKG (ICD-10 - R94.31) old inferior ID vs artifact frequent PVCs 08/28/2024 Pure hypercholesterolemia (ICD-10 - E78.00) on statin LDL 81 05/22/2024 Irregular cardiac rhythm (ICD-10 - I49.9) patient totally asymptomatic- NEVER any chest pain, sob, palpitations or feelings of skipped heart beat- Prior EKG showed NSR with isolated PVCs. Follows up with doctors Zacarias. next appointment is in 1 year Visit summary: Labs pending -laryngitis , Medrol Dosepak -burn roof of mouth refill lidocaine -pt spoke about his who just had a pacemaker placed, sees [place] Dr Mcmillan but she wants to move here 03/04/2024 PAF (paroxysmal atri al fibrillation) (ICD-10 - I48.0) e/m per Dr. Adames- on ASA. next appointment in 1 year Visit summary: Labs pending 02/27/2024 Pure hypercholesterolemia (ICD-10 - E78.00) on statin LDL 81 02/27/2024 PVCs (premature ventricular contractions) (ICD-10 - I49.3) see echo and holter stable 03/04/2024 PVCs (premature ventricular contractions) (ICD-10 - I49.3) isolated, benign- management per Cardiology Visit summary: Labs pending 05/22/2024 Other obesity due to excess calories (ICD-10 - E66.09) patient with BMI 31.4. Report excessive eating. Patient is trying to keep active and exercise more often. Educated the patient on proper healthy eating habits and recommended Mediterranean diet, low on carbohydrates, sugar high on fibers whole grains, fruits. Advised patient to exercise at least 150 minute of moderate intensity exercise per AHA guidelines Visit summary: Labs pending -laryngitis , Medrol Dosepak -burn roof of mouth refill lidocaine -pt spoke about his who just had a pacemaker placed, sees [facility] Mcmillan but she wants to move here 08/28/2024 PVCs (premature ventricular contractions) (ICD-10 - I49.3) see echo and holter stable 08/28/2024 Viral meningitis, unspecified (ICD-10 - A87.9) remote 05/22/2024 PAF (paroxysmal atri al fibrillation) (ICD-10 - I48.0) e/m per Dr. Adames- on ASA. next appointment in 1 year Visit summary: Labs pending -laryngitis , Medrol Dosepak -burn roof of mouth refill lidocaine -pt spoke about his who just had a pacemaker placed, sees [place] Dr Mcmillan but she wants to move here 03/04/2024 Prediabetes (ICD-10 - R73.03) A1c 5.9 on most recent labs (07/18/23). Patient counseled on portion control, prudent diet and decreased caloric intake. Patient counseled on benefits of a low carb/low fat diet. Recommended increased exercise with a goal of 150 min/wk of moderate aerobic exercise per AHA guidelines. Visit summary: Labs pending 02/27/2024 Viral meningitis, unspecified (ICD-10 - A87.9) remote 03/04/2024 Prostate cancer screening (ICD-10 - Z12.5) PSA ordered and will follow up in 6 months. Visit summary: Labs pending 05/22/2024 PVCs (premature ventricular contractions) (ICD-10 - I49.3) isolated, benign- management per Cardiology Visit summary: Labs pending -laryngitis , Medrol Dosepak -burn roof of mouth refill lidocaine -pt spoke about his who just had a pacemaker placed, sees [place] Dr Mcmillan but she wants to move here 05/22/2024 Prediabetes (ICD-10 - R73.03) A1c 5.9 on most recent labs (07/18/23). Patient counseled on portion control, prudent diet and decreased caloric intake. Patient counseled on benefits of a low carb/low fat diet. Recommended increased exercise with a goal of 150 min/wk of moderate aerobic exercise per AHA guidelines. Visit summary: Labs pending -laryngitis , Medrol Dosepak -burn roof of mouth refill lidocaine -pt spoke about his who just had a pacemaker placed, sees [place] Dr Mcmillan but she wants to move here 03/04/2024 Wears hearing aid (ICD-10 - Z97.4) follows up with [facility] rain ybarra for hearing difficulty. started wearing hearing aids mar 20. Visit summary: Labs pending 03/04/2024 Medication managemen t (ICD-10 - Z79.899) Visit summary: Labs pending 05/22/2024 Prostate cancer screening (ICD-10 - Z12.5) PSA ordered and will follow up in 6 months. Visit summary: Labs pending -laryngitis , Medrol Dosepak -burn roof of mouth refill lidocaine -pt spoke about his who just had a pacemaker placed, sees [facility] Mcmill[facility] but she wants to move here 05/22/2024 Wears hearing aid (ICD-10 - Z97.4) follows up with [facility] rain ybarra for hearing difficulty. started wearing hearing aids mar 20. Visit summary: Labs pending -laryngitis , Medrol Dosepak -burn roof of mouth refill lidocaine -pt spoke about his who just had a pacemaker placed, sees [facility] Mcmill[facility] but she wants to move here 05/22/2024 Medication managemen t (ICD-10 - Z79.899) Visit summary: Labs pending -laryngitis , Medrol Dosepak -burn roof of mouth refill lidocaine -pt spoke about his who just had a pacemaker placed, sees [facility] Mcmillan but she wants to move here 02/27/2024 Other 1st degree AV block noted QRS 100msec repeat holter if symptomatic low and I thank you 08/28/2024 Other 1st degree AV block noted QRS 100msec repeat holter if symptomatic Plan Of Treatment Pending Test Test Name Order Date COMPREHENSIVE METABOLIC PANEL([id number]) 1 05/04/2023 TSH W/REFLEX TO FT4 ([id number]) 03/04/2024 HEMOGLOBIN A1c (Q-496) 03/04/2024 CBC (INCLUDES DIFF/PLT)(Q-6399) 03/04/20 LIPID PANEL, STANDARD (Q-1400) 4 Insurance Providers Payer Name Payer Address Payer Phone Subscriber Number Group Number Insured Name Patient Relationship to Insured Coverage Start Date Coverage End Date [facility] [employer] AD[employer] PPO [address] [address] [place], [place] [id number] Mendez Murguia Self - patient is the insured 02/01/202 1 Medical (General) History Medical History History ICD Code hypertension hyperlipidemia GERD History of chronic constipation Z87.19 Surgical History Surgery Date(Month/Year) Ventral Hernia Repair 06/14/2020 vasectomy 1981 Hospitalization History Reason Date(Month/Year) Er Visit- Gastritis 04/03
--- OUTSIDE RECORDS SUMMARY | 2024-10-30 08:59 | XMS_ITS ---
Author Organization [facility] Sil[facility] samayoa Billing Info Address [address] [place] [address] Care Team Providers Care Software Manager Name Role Phone KARI ALLEN Primary Care Provider MD KARI ALLEN Unavailable Unavailable REASON FOR VISIT rx Medications Medication SIG (Take, Route, Frequency, Duration) Notes Start Date End Date Status Losartan Potassium 100 MG TAKE 1 TABLET BY MOUTH EVERY DAY for 90 days Active Encounters Encounter Location Date Provider Diagnosis [id number] [facility] [address] [place] [id number] 08/19/2024 KARI ALLEN Primary hypertension I10 Assessments Encounter Date Diagnosis (ICD Code) Assessment Notes Treatment Notes Treatment Clinical Notes Section Notes 08/19/2024 Primary hypertension (ICD-10 - I10) Plan Of Treatment Medication Medication Name Sig Start Date Stop Date Notes Losartan Potassium 100 MG TAKE 1 TABLET BY MOUTH EVERY DAY for 90 days Progress Notes * Mendez MURGUIA KDOB:[birth year] (69 yo M)Acc No.[id number]:08/19/2024 Patient: Mendez HURD :1955 A ge:69 Y S ex:Male Address:[address] [place] [address], [address], [place], [address] * Refills Refill Losartan Potassium Tablet, 100 MG, 90 Tablet, TAKE 1 TABLET BY MOUTH EVERY DAY, 90 days, Refills=0 * true * Date: Generated for Doreen burdick/Nathaniel/Rolando on: 0 10/30/2024 09:58 AM EDT
--- OUTSIDE RECORDS SUMMARY | 2024-10-30 08:59 | XMS_ITS | Referral Summary ---
Author Organization [facility] Address [address] [place] [address] Care Team Providers Care Animal Maintenance Supervisor Name Role Phone Tyrone Flynn MD Primary Care Provider [phone] Allergies No known active allergies Medications psyllium [...] Other constipation 03/12/2019 Overview (03/24/2019): Went to [facility] in [place], [place] for abdominal pain, work up consistent with constipation, improved with Citrate of Magnesia. Still passing small stools, thin caliber. No fever or blood. Assessment & Plan (04/01/2019 2:00 PM MATERIAL REQUIREMENTS WORKER): He was in [place] recently and established care with an economic adviser or family practice doctor there who got [...] establish care with a GI doctor in [place] when he returns there in about a week. If he has recurrence symptoms before then, call here for early follow-up or see his local GI doctor, Rogelio Bains MD. Essential hypertension 09/13/2018 Assessment & Plan (03/24/2019 11:13 AM MATERIAL REQUIREMENTS WORKER): Blood pressure is in a good range at this time. Continue current therapy. He has a new primary care physician in [place] and will follow-up with him for future [...] fishing pier back at his place in [place], and used a manual screwdriver. He has developed some tenderness over the lateral epicondyle of the right elbow. It should respond to rest and nonsteroidals. If not better in a couple weeks, return for early re-evaluation. Cough 01/03/2018 Assessment & Plan (02/24/2018 1:26 PM MATERIAL REQUIREMENTS WORKER): He has had a cough since end [...] it checked out before he leaves for [place] in about 3 weeks. Exam is unremarkable. After further discussion, he will continue his [id number] medication, and return before leaving for [place] if the cough has not resolved. He [...] esophagus Assessment & Plan (04/01/2019 1:58 PM MATERIAL REQUIREMENTS WORKER): He has been seeing Dr. Bains for this condition. His last upper endoscopy was about six months ago. He will continue on Protonix. He is moving permanently to [place], so he will need to follow-up with a processor solid propellant down there as well. We are giving [...] hyperlipidemia Assessment & Plan (03/24/2019 11:14 AM MATERIAL REQUIREMENTS WORKER): He is tolerating simvastatin. Continue same and follow-up with his new doctor in [place]. Assessment & Plan (09/13/2018 10:00 AM CDT): [...] Obesity Assessment & Plan (03/24/2019 11:14 AM MATERIAL REQUIREMENTS WORKER): He has lost a few lb, and is out of the obese category, but just barely. He continues to work on his diet. Assessment & Plan (09/22/2018 3:51 PM CDT): He actually has lost some weight and is just under the obese category now. He says it was all the activity in [place] building a fishing pier for his residence. [...] (04/01/2019): Added automatically from request for surgery [id number], see colonoscopy report Starr's esophagus with dysplasia 09/19/2018 03/23/2019 Overview (03/23/2019): Added automatically from request for surgery [id number], EGD with Dr. Bains. Prostate cancer screening [...] Influenza, Unspecified 12/15/2016 TD Preservative Free 09/15/2013 Social History Tobacco Use Types Packs/Day Years Used Date Smoking Tobacco: Never Smokeless Tobacco: Never PHQ-2 Answer Date Recorded PHQ-2 Score 0 03/24/2019 Sex and Gender Information Value Date Recorded Sex Assigned at Not on file Legal Sex Male 11:43 AM MATERIAL REQUIREMENTS WORKER Gender Identity Not on file Sexual Orientation Not on file Last Filed Vital Signs Vital Sign Reading Time Taken Comments Blood Pressure 136/82 03/24/2019 10:24 AM MATERIAL REQUIREMENTS WORKER Pulse 75 03/24/2019 10:24 AM MATERIAL REQUIREMENTS WORKER Temperature 36.1 C (97 F) 03/24/2019 10:24 AM MATERIAL REQUIREMENTS WORKER Respiratory Rate 12 03/24/2019 10:24 AM MATERIAL REQUIREMENTS WORKER Oxygen Saturation 98% 03/24/2019 10:24 AM MATERIAL REQUIREMENTS WORKER Inhaled Oxygen Concentration - - Weight 100.2 kg (221 lb) 03/24/2019 10:24 AM MATERIAL REQUIREMENTS WORKER Height 185.4 cm (6' 1) 09/13/2018 9:19 AM CDT Body Mass Index 29.16 09/13/2018 9:19 AM CDT Plan of Treatment Not on file Insurance [address] [place] [address] [employer] OPEN ACCESS [employer] OPEN ACCESS [employer] OPEN ACCESS Advance Directives For more information, please contact: [phone] * Full Code (Latest Code Status on File) Date Activated Date Inactivated Comments 10/08/2018 7:42 AM 10/08/2018 2:13 PM * Full Code Date Activated Date Inactivated Comments 10/08/2018 7:42 AM 10/08/2018 7:42 AM Care Teams Animal Maintenance Supervisor Relationship Specialty Start Date End Date Stabell, Tyrone C., MD [address] [place] [id number] PCP - General 07/21/16
--- OUTSIDE RECORDS SUMMARY | 2024-10-30 08:59 | XMS_ITS ---
Author Organization [facility] Silvia samayoa Billing Info Address [address] [place] [address] Care Team Providers Care Foundry Operator Name Role Phone KARI ALLEN Primary Care Provider MD KARI ALLEN Unavailable Unavailable REASON FOR VISIT Refills Medications Medication SIG (Take, Route, Frequency, Duration) Notes Start Date End Date Status Rosuvastatin Calcium 40 MG TAKE 1 TABLET BY MOUTH EVERY DAY for 90 days Active Encounters Encounter Location Date Provider Diagnosis [id number] [facility] [address] [place], [place] [id number] 07/07/2024 KARI ALLEN Mixed hyperlipidemia E78.2 Assessments Encounter Date Diagnosis (ICD Code) Assessment Notes Treatment Notes Treatment Clinical Notes Section Notes 07/07/2024 Mixed hyperlipidemia (ICD-10 - E78.2) Plan Of Treatment Medication Medication Name Sig Start Date Stop Date Notes Rosuvastatin Calcium 40 MG TAKE 1 TABLET BY MOUTH EVERY DAY for 90 days Progress Notes * Mendez MURGUIA KDOB:[birth year] (69 yo M)Acc No.[id number]:07/07/2024 Patient: Cyn Mendez DORSEY :1955 A ge:69 Y S ex:Male Address:[address] [place] [address], [address], [place], [address] * Refills Refill Rosuvastatin Calcium Tablet, 40 MG, 90 Tablet, TAKE 1 TABLET BY MOUTH EVERY DAY, 90 days, Refills=3 * true * Date: Generated for Doreen burdick/Nathaniel/Rolando on: 0 10/30/2024 09:59 AM EDT
[2024-10-30 09:00] VITALS: BP 191/80; PULSE 92; RESP 20; TEMP 36.9; O2SAT 99
--- NOTE | 2024-10-30 09:36 | ED_ITS ---
HPI - General Adult General Chief complaint: Abdominal Pain Stated complaint: Bowel Issues Time Seen by Provider: 10/30/24 09:25 Source: patient and RN notes reviewed Mode of arrival: ambulatory Limitations: no limitations History of Present Illness HPI narrative: Patient presents today with a 2 week history of a hard stool. Patient states that he has had small hard stools but reports that the amount of stool that he is producing equals normal bowel movements. He takes a stool softener and Metamucil b.i.d. and has been doing this for years, producing normal bowel movements until 2 weeks ago. He denies abdominal pain, blood or mucus in the stool. States he is drinking plenty of water. and patient moved into assisted living 2 months ago and state their diet has significantly changed. Related Data Home Medications ?Medication ?Instructions ?Recorded ?Confirmed ?Last Taken ?Type losartan 100 mg tablet mg 10/30/24 Unknown History omeprazole 40 mg capsule,delayed mg 10/30/24 Unknown History release rosuvastatin 40 mg tablet mg 10/30/24 Unknown History Allergies Allergy/AdvReac Type Severity Reaction Status Date / Time No Known Allergies Allergy Verified 10/30/24 09:06 [facility] Past Medical History Medical History (Updated 10/30/24 @ 10:13 by Seble Purdy, [facility], ) Hypertension High cholesterol Surgical History Surgical History (Updated 10/30/24 @ 09:38 by Seble Purdy, [facility], ) H/O umbilical hernia repair Exam Narrative: GENERAL: Well-appearing, well-nourished, and in no acute distress. HEAD: Normocephalic, atraumatic. EYES: EOMI. No redness or drainage. Conjunctivae normal. ENT: Mucous membranes pink and moist. NECK: Normal AROM. CHEST: No respiratory distress. Clear to auscultation. HEART: Regular rate and rhythm. No murmur appreciated. ABDOMEN: Soft, nontender, nondistended, normal active bowel sounds. EXTREMITIES: Normal range of motion. No edema. SKIN: Warm, dry, no rash. Capillary refill normal. Normal skin turgor. NEURO: No focal deficits. Alert and oriented x3. Gait steady. PSYCH: Normal affect. No signs of depression or anxiety. Course Course Level of Care: [facility] Care Visit Vital Signs Vital signs: Vital Signs Temperature 98.4 F 10/30/24 09:00 Pulse Rate 92 10/30/24 09:00 Respiratory Rate 20 10/30/24 09:00 Blood Pressure 191/80 H 10/30/24 09:00 Pulse Oximetry 99 10/30/24 09:00 Oxygen Delivery Room Air 10/30/24 09:00 Temperature 98.4 F 10/30/24 09:00 Pulse Rate 92 10/30/24 09:00 Respiratory Rate 20 10/30/24 09:00 Blood Pressure 191/80 H 10/30/24 09:00 Pulse Oximetry 99 10/30/24 09:00 Oxygen Delivery Room Air 10/30/24 09:00 Reviewed. Follow up BP prior to discharge was 152/95. Medical Decision Making MDM Narrative Medical decision making narrative: 69-year-old male patient presents with hard stools over the past 2 weeks in spite of Metamucil and stool softener. Recently he and his have moved in to assisted living in her diet has significantly changed, believes this may have attributed to these symptoms. Denies abdominal pain, blood or mucus in the stool, fever, or any additional symptoms. X-ray shows constipation but no bowel obstruction. Recommend stopping the Metamucil at this time and starting MiraLax daily. Vital signs stable. Anticipatory guidance given. Differential Diagnosis Differential Diagnosis: Constipation, bowel obstruction, dehydration Vital Signs Vital Signs: Vital Signs Temperature 98.4 F 10/30/24 09:00 Pulse Rate 92 10/30/24 09:00 Respiratory Rate 20 10/30/24 09:00 Blood Pressure 191/80 H 10/30/24 09:00 Pulse Oximetry 99 10/30/24 09:00 Oxygen Delivery Room Air 10/30/24 09:00 Temperature 98.4 F 10/30/24 09:00 Pulse Rate 92 10/30/24 09:00 Respiratory Rate 20 10/30/24 09:00 Blood Pressure 191/80 H 10/30/24 09:00 Pulse Oximetry 99 10/30/24 09:00 Oxygen Delivery Room Air 10/30/24 09:00 Imaging Data Radiologist's impression: ITS Impressions Abdomen X-Ray 10/30/24 09:56 IMPRESSION: NO ACUTE ABDOMINAL FINDINGS. Constipation. Critical Care Time Critical Care Time Critical Care Time: No Discharge Plan Discharge Clinical Impression: Constipation Qualifiers: Constipation type: unspecified constipation type Qualified Code(s): K59.00 - Constipation, unspecified Patient Disposition: Home Condition: Stable Instructions: Constipation (DC) Additional Instructions: Your x-ray shows constipation. Stop the Metamucil at this time and start some MiraLax. Take 1 capful daily with 8 oz of fluid. Continue your stool softener. If the MiraLax does not improve your bowel movements, please follow-up with your PCP or go to the emergency room for further evaluation and treatment. Your blood pressure was elevated above 120/80 today at Urgent Care. This puts you above the threshold for follow up. Please schedule a followup visit with your personal physician as soon as possible, for further evaluation and treatment. Even blood pressure exceeding 120/80 may indicate pre-hypertension. Patient Language: Japanese Prescriptions: No Action omeprazole 40 mg capsule,delayed release(DR/EC) losartan 100 mg tablet rosuvastatin 40 mg tablet Follow-up/Referrals: PHYSICIAN,CALCULATION CLERK [Primary Care Provider] - Time of Disposition: 10:12
[2024-10-30 10:20] VITALS: BP 152/95
== END 2024-10-30 10:19 | disposition home or self-care (01) ==
PROVIDERS: Emergency Provider Nurse Practitioner
DX: K59.00 Constipation, unspecified (principal); I10 Essential (primary) hypertension; Z79.899 Other long term (current) drug therapy
CPT/HCPCS: 74018; 99203; G0463